=== PATIENT | male | born 1950 | race Caucasian/White ===

== ENCOUNTER 2018-07-27 13:45 | Outpatient (CLI) | payer MEDICARE, OTHER | END 2018-07-27 23:59 | disposition home or self-care (01) | LOC: CVU 13:45 → EDSTATUS 14:00 → CVU 23:59 | PROVIDERS: ATTEND Internal Medicine Cardiovascular Disease | DX: I35.8 Other nonrheumatic aortic valve disorders (principal); I35.1 Nonrheumatic aortic (valve) insufficiency; I37.1 Nonrheumatic pulmonary valve insufficiency; I10 Essential (primary) hypertension; E78.5 Hyperlipidemia, unspecified | CPT/HCPCS: 93306 ==

== ENCOUNTER 2018-10-11 10:12 | Observation (INO) | payer MEDICARE, OTHER ==
[2018-10-08 09:22] LABS: BASOPHILS # (AUTO) 0.03 x10^3/uL (0-0.1); BASOPHILS % (AUTO) 0 % (0-1); EOSINOPHILS % (AUTO) 2 % (1-7); LYMPHOCYTES # (AUTO) 1.56 x10^3/uL (1-3.4); LYMPHOCYTES % (AUTO) 23 % (22-44); MD NO; MEAN CORPUSCULAR HEMOGLOBIN 30.7 pg (27.5-34.5); MEAN CORPUSCULAR HGB CONC 33.6 g/dL (33.2-36.2); MEAN CORPUSCULAR VOLUME 91.5 fL (81-97); MEAN PLATELET VOLUME 8.6 fL (7.4-10.4); MONOCYTES # (AUTO) 0.53 x10^3/uL (0.2-0.8); MONOCYTES % (AUTO) 8 % (2-9); NEUTROPHILS # (AUTO) 4.53 x10^3/uL (1.8-6.8); NEUTROPHILS % (AUTO) 67 % (42-75); PLATELET COUNT 218 x10^3/uL (130-400); RED BLOOD COUNT 5.38 x10^6/uL (4.38-5.82); RED CELL DISTRIBUTION WIDTH 13.3 % (9.4-14.8)
[2018-10-08 09:31] LABS: ANION GAP 5 mmol/L (5-15); CALCIUM 9.1 mg/dL (8.5-10.1); CHLORIDE 108 mmol/L (98-107); CREATININE 1.27 mg/dL (0.7-1.3)
[~2018-10-11] VITALS: Ht 170.2 cm; Wt 68.3 kg
[~2018-10-11 10:12] MED LIST: AMLO10TA8 PO; ATOR40TA78 PO; LISI1TAB3 PO
[2018-10-11] MEDS ORDERED: ASPIRIN 325 MG TABLET EC PO ONE (10:30)
[2018-10-11] MEDS ORDERED: SODIUM CHLORIDE 0.9% 1,000 ML IV SCH ×2 (10:30→12:28)
[2018-10-11] MEDS ORDERED: HEPARIN 1,000 UNITS/ML, 10ML ONE (11:38)
[2018-10-11] MEDS ORDERED: FENTANYL PF 100 MCG/2ML ONE (11:38)
[2018-10-11] MEDS ORDERED: VERAPAMIL 2.5 MG/ML, 2ML ONE (11:38)
[2018-10-11] MEDS ORDERED: MIDAZOLAM 1 MG/ML, 2ML ONE (11:38)
[2018-10-11] MEDS ORDERED: BIVALIRUDIN 250 MG ONE (11:38)
[2018-10-11 15:56] VITALS: BP 143/52
[2018-10-11 19:02] VITALS: BP 156/51
[2018-10-11] MEDS: LISINOPRIL 10 MG TABLET PO SCH (20:25)
[2018-10-11] MEDS: HYDROCHLOROTHIAZIDE 12.5 MG CAPSULE PO SCH (20:25)
[2018-10-11] MEDS ORDERED: ATORVASTATIN 40 MG TABLET PO SCH (21:00)
[2018-10-12 00:27] VITALS: BP 152/52
[2018-10-12 07:53] VITALS: BP 167/55
[2018-10-12] MEDS: LISINOPRIL 10 MG TABLET PO SCH (08:11)
[2018-10-12] MEDS: HYDROCHLOROTHIAZIDE 12.5 MG CAPSULE PO SCH (08:11)
[2018-10-12] MEDS ORDERED: AMLODIPINE 5 MG TABLET PO SCH (09:00)
== END 2018-10-12 10:15 | disposition home or self-care (01) ==
LOC: CACL 10:12 → ORIP 14:53 → 5SO 15:10 → DCLOUNGE 10-12 09:30
PROVIDERS: ADMIT Internal Medicine Cardiovascular Disease; ATTEND Internal Medicine Cardiovascular Disease
DX: I25.10 Atherosclerotic heart disease of native coronary artery without angina pectoris (principal); I35.1 Nonrheumatic aortic (valve) insufficiency; I51.7 Cardiomegaly; I10 Essential (primary) hypertension; E78.5 Hyperlipidemia, unspecified; K76.9 Liver disease, unspecified; E55.9 Vitamin D deficiency, unspecified; Z79.899 Other long term (current) drug therapy
CPT/HCPCS: 36415; 71046; 80048; 85025; 93458; 93567; 99156; C1769; C1894; G0378; J1644; J2250; J3010; Q9967; J0583

== ENCOUNTER 2018-12-21 13:28 | Outpatient (CLI) | payer MEDICARE, OTHER ==
[2018-12-21] MEDS ORDERED: OMNIPAQUE 350 MG/ML, 100ML BOTTLE ONE (15:16)
== END 2018-12-21 23:59 | disposition home or self-care (01) ==
LOC: CFH 13:28
PROVIDERS: ATTEND Thoracic Surgery (Cardiothoracic Vascular Surgery)
DX: I35.1 Nonrheumatic aortic (valve) insufficiency (principal)
CPT/HCPCS: 71275; 82565; Q9967

== ENCOUNTER 2019-04-20 09:02 | Emergency (ER) | payer MEDICARE, OTHER ==
[~2019-04-20] VITALS: Ht 170.2 cm; Wt 78.6 kg
[~2019-04-20 09:02] MED LIST changes: +ACET325T26 PO; +AMIO200T42 PO; +APIX5TAB PO; +ASPI81TA45 PO; +DOCU-131 PO; +HYDR-3237 PO; +LISI1TAB23 PO; -LISI1TAB3 PO; +METO25TA35 PO; +MULT-516 PO; +TAMS-11 PO
[2019-04-20] MEDS ORDERED: LISINOPRIL 10 MG TABLET ONE (09:49)
[2019-04-20] MEDS ORDERED: LISINOPRIL 10 MG TABLET PO ONE (10:00)
[2019-04-20 10:12] LABS: BASOPHILS # (AUTO) 0.04 x10^3/uL (0-0.1); BASOPHILS % (AUTO) 1 % (0-1); EOSINOPHILS % (AUTO) 3 % (1-7); LYMPHOCYTES # (AUTO) 1.61 x10^3/uL (1-3.4); LYMPHOCYTES % (AUTO) 23 % (22-44); MD NO; MEAN CORPUSCULAR HEMOGLOBIN 31.2 pg (27.5-34.5); MEAN CORPUSCULAR HGB CONC 33.3 g/dL (33.2-36.2); MEAN CORPUSCULAR VOLUME 93.8 fL (81-97); MEAN PLATELET VOLUME 8.4 fL (7.4-10.4); MONOCYTES % (AUTO) 7 % (2-9); NEUTROPHILS # (AUTO) 4.82 x10^3/uL (1.8-6.8); NEUTROPHILS % (AUTO) 67 % (42-75); PLATELET COUNT 200 x10^3/uL (130-400); RED BLOOD COUNT 5.28 x10^6/uL (4.38-5.82)
--- NOTE | 2019-04-20 10:18 | NUR ---
TASK RN: PT RESTING ON GURNEY. WARNER
[2019-04-20 10:19] VITALS: BP 165/87
[2019-04-20 10:24] LABS: ALBUMIN 3.7 g/dL (3.4-5.0); ANION GAP 5 mmol/L (5-15); CALCIUM 8.8 mg/dL (8.5-10.1); CHLORIDE 110 mmol/L (98-107)
[2019-04-20 10:30] LABS: ALANINE AMINOTRANSFERASE 44 U/L (12-78); ALKALINE PHOSPHATASE 68 U/L (45-117); BILIRUBIN,TOTAL 1.1 mg/dL (0.2-1.0); CREATININE 1.23 mg/dL (0.7-1.3); TOTAL PROTEIN 6.9 g/dL (6.4-8.2); TROPONIN I 0.043 ng/mL (0.000-0.045)
--- NOTE | 2019-04-20 12:14 | NUR ---
TASK RN, FIRST CONTACT WITH PT. Patient given discharge instructions and they have confirmed that they understand the instructions. Patient ambulatory with steady gait. NADN. No needs expressed. Pt left with d/c paperwork, prescription, and all personal belongings.
== END 2019-04-20 12:18 | disposition home or self-care (01) ==
LOC: ED 10:18
DX: I10 Essential (primary) hypertension (principal); R51 Headache
CPT/HCPCS: 36415; 71045; 80053; 83880; 84484; 85025; 93005; 99284

== ENCOUNTER 2019-06-18 09:49 | Outpatient (CLI) | payer MEDICARE, OTHER ==
[2019-06-18 13:31] LABS: ANION GAP 5 mmol/L (5-15); CALCIUM 9.1 mg/dL (8.5-10.1); CHLORIDE 106 mmol/L (98-107); CREATININE 1.41 mg/dL (0.7-1.3)
== END 2019-06-18 23:59 | disposition home or self-care (01) ==
LOC: CFH 09:49
PROVIDERS: ATTEND Internal Medicine Cardiovascular Disease
DX: E78.2 Mixed hyperlipidemia (principal); I35.1 Nonrheumatic aortic (valve) insufficiency; I10 Essential (primary) hypertension
CPT/HCPCS: 36415; 80048

== ENCOUNTER → 2019-07-30 | Outpatient (CLI) | payer MEDICARE, OTHER ==
[2019-07-30 13:32] LABS: CALCIUM 8.8 mg/dL (8.5-10.1)
[2019-07-30 13:36] LABS: ANION GAP 8 mmol/L (5-15); CHLORIDE 107 mmol/L (98-107); CREATININE 1.38 mg/dL (0.7-1.3)
== END | disposition home or self-care (01) ==
LOC: CFH 10:11
PROVIDERS: ATTEND Internal Medicine Cardiovascular Disease
DX: I10 Essential (primary) hypertension (principal)
CPT/HCPCS: 36415; 80048

== ENCOUNTER → 2019-11-22 | Outpatient (CLI) | payer MEDICARE, OTHER ==
[2019-11-22 13:46] LABS: ALBUMIN 3.9 g/dL (3.4-5.0); ANION GAP 4 mmol/L (5-15); CALCIUM 9.4 mg/dL (8.5-10.1); CHLORIDE 108 mmol/L (98-107)
[2019-11-22 13:48] LABS: ALANINE AMINOTRANSFERASE 42 U/L (12-78); ALKALINE PHOSPHATASE 71 U/L (45-117); BILIRUBIN,TOTAL 1.5 mg/dL (0.2-1.0); CHOL/HDL RATIO 3.8; CHOLESTEROL, TOTAL 195 mg/dL (140-239); CREATININE 1.35 mg/dL (0.7-1.3); HDL CHOL % 26 % (26-37); HDL CHOLESTEROL (DIRECT) 51 mg/dL (40-60); LDL CHOLESTEROL,CALCULATED 102 mg/dL (54-169); TOTAL PROTEIN 7.4 g/dL (6.4-8.2); TRIGLYCERIDES 208 mg/dL (50-200); VLDL CHOLESTEROL 42 mg/dL (0-25)
== END | disposition home or self-care (01) ==
LOC: CFH 07:01
PROVIDERS: ATTEND Internal Medicine Cardiovascular Disease
DX: E78.2 Mixed hyperlipidemia (principal)
CPT/HCPCS: 36415; 80053; 80061

== ENCOUNTER 2020-10-05 07:28 | Outpatient (CLI) | payer MEDICARE, OTHER ==
[~2020-10-05 07:28] MED LIST changes: +AMLO-211 PO; -AMLO10TA8 PO
[2021-01-04] MEDS ORDERED: HYDR12.517 PO (18:48)
[2021-01-04] MEDS ORDERED: LISI-170 PO (18:48)
[2021-01-06] MEDS ORDERED: APIX5TAB PO (10:24)
[2021-01-06] MEDS ORDERED: METO25TA35 PO (10:24)
[2021-01-06] MEDS ORDERED: FLEC100T PO (10:24)
== END 2020-10-05 23:59 | disposition home or self-care (01) ==
LOC: CFH 07:28
PROVIDERS: ATTEND Internal Medicine Cardiovascular Disease
DX: I08.8 Other rheumatic multiple valve diseases (principal); E78.5 Hyperlipidemia, unspecified; I11.9 Hypertensive heart disease without heart failure; Z95.4 Presence of other heart-valve replacement
CPT/HCPCS: 93306

== ENCOUNTER → 2021-02-26 | Outpatient (CLI) | payer MEDICARE, OTHER ==
[~2021-02-26] MED LIST changes: +FLEC100T PO; +HYDR12.517 PO; +LISI-170 PO
== END | disposition home or self-care (01) ==
LOC: CFH 07:17
PROVIDERS: ATTEND Internal Medicine Cardiovascular Disease
DX: I08.8 Other rheumatic multiple valve diseases (principal); I48.91 Unspecified atrial fibrillation
CPT/HCPCS: 93306